=== PATIENT | female | born 1960 | race Caucasian/White ===

== ENCOUNTER 2021-05-05 13:24 | Outpatient (CLI) | payer OTHER | END 2021-05-05 13:25 | disposition home or self-care (01) | LOC: BICMAMMO 13:24 | PROVIDERS: ATTEND Obstetrics & Gynecology | DX: Z12.31 Encounter for screening mammogram for malignant neoplasm of breast (principal) | CPT/HCPCS: 77063; 77067 ==

== ENCOUNTER 2024-04-06 10:14 | Outpatient (CLI) | payer OTHER | END 2024-04-06 10:15 | disposition home or self-care (01) | LOC: BICCT 10:14 | PROVIDERS: ATTEND Internal Medicine | DX: E78.00 Pure hypercholesterolemia, unspecified (principal); I70.90 Unspecified atherosclerosis | CPT/HCPCS: 75571 ==